=== PATIENT | female | born 1985 | race Two or more races ===

== ENCOUNTER 2016-05-04 22:02 | Emergency (ER) | payer MEDICAID ==
[~2016-05-04] VITALS: Ht 170.2 cm; Wt 86.2 kg
[~2016-05-04 22:02] MED LIST: PREN-96 PO
[2016-05-04 22:15] VITALS: BP 103/63
== END 2016-05-04 23:30 | disposition left against medical advice (07) ==
LOC: ER 22:08
DX: N93.9 Abnormal uterine and vaginal bleeding, unspecified (principal); R10.9 Unspecified abdominal pain; Z53.21 Procedure and treatment not carried out due to patient leaving prior to being seen by health care provider